=== PATIENT | male | born 1950 | race Caucasian/White ===

== ENCOUNTER 2017-02-06 08:46 | Emergency (ER) | payer MEDICARE, OTHER ==
--- NOTE | ~2017-02-06 | ER ---
PATIENT'S NAME: DAISY ENGEL [facility] AGE: 66 Y [address] ROOM: [place] [id number] LOCATION: [facility] ADMIT DATE: 02/06/2017 ER/Outpatient Report DISCHARGE DATE: 02/06/2017 FAMILY PHYSICIAN: Physician, Unknown ATTENDING PHYSICIAN: Darrius Wen Time of Arrival: 0846 hours. Time of Evaluation: 0849 hours. CHIEF COMPLAINT: Shortness of breath, chills, and not feeling well. HISTORY OF PRESENT ILLNESS: The patient is a 66-year-old male who presents to the emergency department today with a chief complaint of shortness of breath, chills, and not feeling well. He reports this started 3 days prior to arrival. It has progressively worsened. He reports some subjective fevers and chills. Does report some shortness of breath. Denies any cough. Denies any chest pain. Does report some nausea. No vomiting. He reports a mild headache as well. He denies any diarrhea or constipation. PAST MEDICAL HISTORY: 1. Hypertension. 2. COPD. PAST SURGICAL HISTORY: Left shoulder, back. SOCIAL HISTORY: The patient smokes, quit 3 days ago. Denies any alcohol or illicit drug use. ALLERGIES: NO KNOWN DRUG ALLERGIES. MEDICATIONS: Please see list. PRIMARY CARE DOCTOR: [place], Dr. Maya. REVIEW OF SYSTEMS: All systems were reviewed by myself and are negative with the exception of those discussed in the HPI and past medical history. PHYSICAL EXAMINATION: PATIENT'S NAME: DAISY ENGEL [facility] AGE: 66 Y [address] ROOM: [place] [address] LOCATION: [facility] ADMIT DATE: 02/06/2017 ER/Outpatient Report DISCHARGE DATE: 02/06/2017 FAMILY PHYSICIAN: Physician, Unknown ATTENDING PHYSICIAN: Darrius Wen VITAL SIGNS: Weight 108.8 kg. Blood pressure 140/88, pulse 96, respiratory rate 20, temperature 101.5, and oxygen saturation 95% on room air. GENERAL: The patient is a 66-year-old male, who appears stated age, in no acute distress. HEENT: Head; normocephalic and atraumatic. Pupils are equal, round, and reactive to light. NECK: Supple. There is no nuchal rigidity. CARDIOVASCULAR: Regular rate and rhythm. No murmurs, rubs, or gallops. LUNGS: Diminished diffusely. No wheezes, rales, or rhonchi. ABDOMEN: Soft, nontender, and nondistended. No rebound, rigidity, or guarding. MUSCULOSKELETAL: The patient moves all 4 extremities. SKIN: Warm and dry. No rashes or lesions noted. LABORATORY DATA AND IMAGING STUDIES: Labs and X-rays: EKG is obtained, interpreted by myself at 0912 hours which shows sinus rhythm with a rate of 96, normal axis, normal interval. No ST elevation or ST depressions, nonspecific T-wave. CBC is normal. ANC is normal. Coags are normal. Lactate is 1.7. CMP is unremarkable. LFTs are normal. Lipase 56. Cardiac enzymes are normal. CT scan of the brain was obtained. I have discussed the results with the radiologist, shows no acute process. Free T4 and TSH are normal. ProBNP is 745. Procalcitonin is 2.91. Urinalysis shows positive nitrites, 25 leukocyte esterase, rare wbc's, and negative bacteria. A 2-view chest x-ray was obtained, interpreted by myself, does show a hazy right lower lobe infiltrate. IMPRESSION: 1. Acute clinical pneumonia. 2. Acute urinary tract infection, suspect bladder. 3. Elevated procalcitonin. 4. Initial visit. EMERGENCY DEPARTMENT COURSE: The patient was brought back to the examination room. Seen and evaluated by myself. IV is established. Laboratory analysis and imaging were obtained as described above. The patient is given 2 L of normal saline IV. The results of the testing are returned. I have discussed the results with the patient. We have had a discussion as to inpatient versus outpatient treatment of his pneumonia and urinary tract infection. He reports he feels well. He would like to go home at this time. He does report he is able to easily return to the emergency department if things get worse. I have discussed with him providing him with IV antibiotics and then starting him on oral antibiotics. He was given 2 g of Rocephin IV as well as 500 mg of azithromycin IV. I have written a prescription for Levaquin at home orally. I have also written a prescription for albuterol nebules. I have recommended use of these every 4 PATIENT'S NAME: DAISY ENGEL [facility] AGE: 66 Y [address] ROOM: [place] [address] LOCATION: [facility] ADMIT DATE: 02/06/2017 ER/Outpatient Report DISCHARGE DATE: 02/06/2017 FAMILY PHYSICIAN: Physician, Unknown ATTENDING PHYSICIAN: Darrius Wen. I have discussed he follows up with his primary care doctor in 2 to 3 days for re-evaluation. I have discussed return to care instructions including worsening symptoms or any other concerns to return to the emergency department as soon as possible. The patient is agreeable. He is without further questions at this time. DISPOSITION: The patient was discharged to home in good condition. DO MUKESH LANGFORD/modl /[id number] d: 02/06/172027 t: 02/07/17 0840, OUTPATIENT REPORT
[2017-02-06 09:15] LABS: BASOPHIL % 0.2 %; EOSINOPHIL % 0.1 %; HEMATOCRIT 42.6 % (37.0-53.0); HEMOGLOBIN 14.8 g/dL (11.0-16.0); IMMATURE GRANULOCYTE % 0.4 %; LYMPHOCYTE # 1.3 K/uL (0.8-4.0); LYMPHOCYTE % 14.2 %; MCH 33.3 pg (27.0-34.0); MCHC 34.7 gm/dL (32.0-36.5); MCV 95.9 fl (83.0-98.0); MONOCYTE # 0.7 K/uL (0.0-1.0); MONOCYTE % 7.3 %; MPV 10.7 fl (9.4-12.4); NEUTROPHIL # (ANC) 7.3 K/uL (1.4-9.0); NEUTROPHIL % 77.8 %; NRBC % 0 /100WBC (0-0.00); PLATELET COUNT 187 K/uL (150-450); RBC 4.44 M/uL (3.50-5.50); RDW-CV 12.8 % (11.9-14.6); WBC 9.4 K/uL (4.0-11.0)
[2017-02-06 09:28] LABS: INR - (THERAPEUTIC) 0.96 (0.92-1.07); PROTIME 10.1 SECONDS (9.8-11.4); PTT 35 SECONDS (25-32)
[2017-02-06 09:58] LABS: ALBUMIN 2.9 gm/dL (3.5-5.0); ALK PHOS 91 IU/L (33-138); ALT 27 IU/L (12-78); ANION GAP 15.4 (10.0-19.0); AST 22 IU/L (10-40); BLOOD UREA NITROGEN 14 mg/dL (6-24); CALCIUM 8.9 mg/dL (8.5-10.5); CHLORIDE 99 mMol/L (96-110); CO2 24 mMol/L (22-32); CPK 114 IU/L (35-332); CREATININE 1.4 mg/dL (0.6-1.3); POTASSIUM 3.4 mMol/L (3.7-5.1); SODIUM 135 mMol/L (135-145); TOTAL BILIRUBIN 1.6 mg/dL (0.0-1.5); TOTAL PROTEIN 7.5 g/dL (6.0-8.4)
[2017-02-06 10:23] LABS: BLOOD URINE 25 /UL (NEGATIVE); GLUCOSE URINE NEGATIVE (NEGATIVE); KETONE URINE NEGATIVE (NEGATIVE); LEUKOCYTES URINE 25 /UL (NEGATIVE); NITRITE URINE POSITIVE (NEGATIVE); PROTEIN URINE 100 mg/dL (NEGATIVE); SPEC GRAVITY URINE 1.015 (1.003-1.035); TURBIDITY URINE CLEAR (CLEAR); UROBILINOGEN URINE 8 mg/dL (NORMAL)
[2017-02-06 10:27] LABS: COLOR URINE AMBER (YELLOW)
[2017-02-06 10:29] LABS: RBC URINE 0-2 #/HPF (NEGATIVE); WBC URINE RARE #/HPF (NEGATIVE)
[2017-02-06 10:30] LABS: BACTERIA URINE NEGATIVE (NEGATIVE); EPITHELIAL URINE RARE #/HPF (NEGATIVE); MUCUS URINE 1+ (NEGATIVE)
== END 2017-02-06 13:09 | disposition disaster alternative care site (69) ==
LOC: GMED 08:46
PROVIDERS: Emergency Medicine
DX: J18.9 Pneumonia, unspecified organism (principal); N39.0 Urinary tract infection, site not specified; R79.89 Other specified abnormal findings of blood chemistry; I10 Essential (primary) hypertension; J44.9 Chronic obstructive pulmonary disease, unspecified; F17.210 Nicotine dependence, cigarettes, uncomplicated; Z88.8 Allergy status to other drugs, medicaments and biological substances
CPT/HCPCS: J0456; J0696; J7030